=== PATIENT | female | born 1970 | race Caucasian/White ===

== ENCOUNTER 2025-04-12 12:09 | Emergency (ER) | payer SELFPAY ==
[2025-04-12] MEDS: Diphtheria,Pertussis(Acell),Tetanus Vaccine 0.5 ML Syringe IM ONE (13:01)
== END 2025-04-12 13:06 | disposition home or self-care (01) ==
LOC: MW.ED 12:09
DX: T63.461A Toxic effect of venom of wasps, accidental (unintentional), initial encounter (principal); Z23 Encounter for immunization; Z75.3 Unavailability and inaccessibility of health-care facilities
CPT/HCPCS: 90471; 90715; 99282; 99283-25

== ENCOUNTER 2025-04-13 20:59 | Emergency (ER) | payer SELFPAY | END 2025-04-13 21:26 | disposition home or self-care (01) | LOC: MW.ED 20:59 | DX: L53.9 Erythematous condition, unspecified (principal); T63.461D Toxic effect of venom of wasps, accidental (unintentional), subsequent encounter; F17.200 Nicotine dependence, unspecified, uncomplicated; Z75.3 Unavailability and inaccessibility of health-care facilities | CPT/HCPCS: 99282 ==